=== PATIENT | male | born 1955 | race Caucasian/White ===

== ENCOUNTER → 2019-04-01 | Outpatient (CLI) | payer OTHER | END | disposition home or self-care (01) | LOC: CARD 14:00 | DX: I51.7 Cardiomegaly (principal) ==

== ENCOUNTER → 2023-10-17 | Outpatient (CLI) | payer MEDICARE, OTHER | END | disposition home or self-care (01) | LOC: US 01:53 | PROVIDERS: ATTEND Family Medicine | DX: I65.23 Occlusion and stenosis of bilateral carotid arteries (principal) ==

== ENCOUNTER 2024-06-18 14:36 | Emergency (ER) | payer MEDICARE, OTHER ==
[~2024-06-18] VITALS: Ht 185.4 cm; Wt 147.0 kg
[2024-06-18] MEDS ORDERED: IOHEXOL 350 MG/ML 100 ML VIAL IV ONE (15:15)
[2024-06-18] MEDS ORDERED: SODIUM CHLORIDE 0.9% 100 ML BAG IV ONE (15:15)
[2024-06-18 15:16] LABS: BASO # 0.1 10*3/uL (0.0-0.1); BASO % 1.1 % (0.0-1.0); EOS # 0.1 10*3/uL (0.0-0.4); EOS % 1.6 % (1.0-4.0); HEMATOCRIT 48.1 % (42.0-52.0); MEAN CELL VOLUME 85.6 fl (80.0-94.0); MEAN CORPUSCULAR HGB 27.8 pg (27.0-31.0); MEAN CORPUSCULAR HGB CONC 32.4 g/dl (33.0-37.0); MEAN PLATELET VOLUME 9.4 fl (9.6-12.3); MONO # 0.8 10*3/uL (0.1-1.0); MONO % 10.1 % (3.0-9.0); NEUT # 4.8 10*3/uL (2.3-7.9); NEUT % 58.6 % (47.0-73.0); PLATELET COUNT AUTOMATED 238 10*3/uL (130-400); RED BLOOD COUNT 5.62 10*6/uL (4.50-5.90); RED CELL DISTRI WIDTH 12.6 % (0-14.5); WHITE BLOOD COUNT 8.2 10*3/uL (4.8-10.8)
[2024-06-18 15:35] LABS: BUN 18 mg/dl (9-23); CHLORIDE 102 mmol/L (98-107); POTASSIUM 4.9 mmol/L (3.4-5.1)
[2024-06-18] MEDS ORDERED: HEPARIN SODIUM 250 ML IV SCH (16:50)
[2024-06-18 17:26] LABS: ACT PARTIAL THROMBO TIME 27.1 SECONDS (20.0-32.1)
== END 2024-06-19 04:32 | disposition short-term general hospital (02) ==
LOC: ED 14:36
PROVIDERS: Emergency Medicine
DX: I26.99 Other pulmonary embolism without acute cor pulmonale (principal); I82.412 Acute embolism and thrombosis of left femoral vein; M71.22 Synovial cyst of popliteal space [Baker], left knee

== ENCOUNTER → 2024-06-29 | Outpatient (CLI) | payer MEDICARE, OTHER ==
[2024-06-29 12:37] LABS: ALKALINE PHOSPHATASE 77 U/L (46-116); BUN 19 mg/dl (9-23); CHLORIDE 101 mmol/L (98-107); POTASSIUM 4.4 mmol/L (3.4-5.1); SGPT/ALT 54 U/L (5-49); TOTAL PROTEIN 7.5 gm/dL (6.0-8.0)
[2024-07-01 05:06] LABS: ANTI-THROMBIN III ACTIVITY 115 % (75-135); PROTEIN S - FUNCTIONAL 75 % (63-140); PROTEIN S, FREE 96 % (61-136); PROTEIN S, TOTAL 93 % (60-150)
[2024-07-01 15:07] LABS: PROTEIN C, ANTIGEN 122 % (60-150)
== END | disposition home or self-care (01) ==
LOC: LAB 11:22
PROVIDERS: ATTEND Family Medicine
DX: E78.00 Pure hypercholesterolemia, unspecified (principal); E55.9 Vitamin D deficiency, unspecified; N40.1 Benign prostatic hyperplasia with lower urinary tract symptoms

== ENCOUNTER → 2024-07-20 | Outpatient (CLI) | payer MEDICARE, OTHER | END | disposition home or self-care (01) | LOC: US 07:36 | PROVIDERS: ATTEND Student in an Organized Health Care Education/Training Program | DX: I82.532 Chronic embolism and thrombosis of left popliteal vein (principal); I82.412 Acute embolism and thrombosis of left femoral vein ==